=== PATIENT | male | born 1985 | race Caucasian/White ===

== ENCOUNTER 2016-11-27 10:58 | Emergency (ER) | payer OTHER ==
[~2016-11-27] VITALS: Ht 172.7 cm; Wt 76.1 kg
[~2016-11-27 10:58] MED LIST: ACET325S8 PO; DEPA250T
[2016-11-27 11:31] VITALS: BP 117/65; PULSE 70; RESP 16; TEMP 98.3; O2SAT 97
[2016-11-27] MEDS ORDERED: methylPREDNISolone SOD SUCC 125 MG/2 ML VIAL IM ONE (12:30)
[2016-11-27] MEDS ORDERED: RESP: ALBUTEROL 2.5 MG/IPRATROPIUM 0.5 MG NEB (SCH) NEB ONE (12:30)
[2016-11-27] MEDS ORDERED: VENTAER INH (12:34)
[2016-11-27] MEDS ORDERED: DOXY100C PO (12:34)
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
== END 2016-11-27 13:20 | disposition home or self-care (01) ==
LOC: PHEFT 10:58
DX: J20.9 Acute bronchitis, unspecified (principal); F17.210 Nicotine dependence, cigarettes, uncomplicated
CPT/HCPCS: 94664; 96372; 99283; J2930